=== PATIENT | male | born 1970 | race Caucasian/White ===

== ENCOUNTER 2018-04-08 12:00 | Inpatient (IN) | payer OTHER ==
[2018-04-08 13:57] VITALS: BMI 28.5
--- NOTE | 2018-04-08 14:46 | HP ---
CIWA Score Nausea/Vomitin-No Nausea/No Vomiting Muscle Tremors: 1-None Visible, but [place] Anxiety: 4-Mod. Anxious/Guarded Agitation: 4-Moderately Restless Paroxysmal Sweats: 1-Minimal Palms Moist Orientation: 0-Oriented Tacttile Disturbances: 3-Moderate Itch/Numb/Burn Auditory Disturbances: 0-None Visual Disturbances: 0-None Headache: 2-Mild CIWA-Ar Total Score: 15 - Admission Criteria OASAS Guidelines: Admission for Medically Managed Detox: Requires at least one of the followin. CIWA greater than 12 2. Seizures within the past 24 hours 3. Delirium tremens within the past 24 hours 4. Hallucinations within the past 24 hours 5. Acute intervention needed for co occurring medical disorder 6. Acute intervention needed for co occurring psychiatric disorder 7. Severe withdrawal that cannot be handled at a lower level of care (continued vomiting, continued diarrhea, abnormal vital signs) requiring intravenous medication and/or fluids 8. Admission ROS [facility] Chief Complaint: PATIENT PRESENTS WITH XANAX/KLONIPIN WITHDRAWAL SX Allergies/Adverse Reactions: Allergies Allergy/AdvReac Type Severity Reaction Status Date / Time No Known Allergies Allergy Verified 04/08/18 14:34 History of Present Illness: PATIENT IS FIRST ADMISSION TO [facility] FOR DETOX OF XANAX/BZO. PATIENT WAS IN DETOX AT [facility] 3 WEEKS AGO AND RELAPSE SOON AFTER DISCHARGE. PATIENT IS ALSO ON MMTP AT [facility] AND REPORTS LAST DOSE OF 100MG TODAY. RN DOSE VERIFICATION PENDING. PATIENT STARTED BUYING NON-PRESCRIBED XANAX 2017 AFTER RELEASE FROM ALF. PATIENT TAKES 14MG OF XANAX DAILY AND LAST DOSE WAS LAST NIGHT. PATIENT ALSO SNIFFS HEROIN, 10-15 BAGS DAILY IN ADDITION TO METHADONE. LAST TIME HE USED WAS LAST NIGHT. PATIENT DENIES HX OF SEIZURES. + BLACKOUTS, FALLS. AND OVERDOSE. LAST OVERDOSE 2007. DENIES IVDA. PMH ANXIETY/ DEPRESSION, RESTLESS LEG SYNDROME,ASTHMA AND TOBACCO USE. DENIES SI/HI AND SUICIDE ATTEMPTS. +MARIJUANA USE. Exam Limitations: No Limitations - Ebola screening Have you traveled outside of the country in the last 21 days: No Have you had contact with anyone from an Ebola affected area: No Have you been sick,other than usual withdrawal symptoms: No Do you have a fever: No - Review of Systems Constitutional: Chills, Changes in sleep, Unexplained wgt Loss EENT: reports: Recent change in vision (+[place]) Respiratory: reports: No Symptoms reported Cardiac: reports: No Symptoms Reported GI: reports: Poor Appetite, Poor Fluid Intake : reports: No Symptoms Reported, Other (DARK COLORED URINE) Musculoskeletal: reports: Back Pain, Muscle Pain Integumentary: reports: No Symptoms Reported Neuro: reports: Headache, Numbness, Tingling, Tremors Endocrine: reports: Unexplained Weight Loss Hematology: reports: No Symptoms Reported Psychiatric: reports: Orientated x3, Anxious, Depressed Patient History - Patient Medical History Hx Anemia: No Hx Asthma: Yes Hx Chronic Obstructive Pulmonary Disease (COPD): No Hx Cancer: No Hx Cardiac Disorders: No Hx Congestive Heart Failure: No Hx Hypertension: No Hx Hypercholesterolemia: No Hx Pacemaker: No HX Cerebrovascular Accident: No Hx Seizures: No Hx Dementia: No Hx Diabetes: No Hx Gastrointestinal Disorders: No Hx Liver Disease: No Hx Genitourinary Disorders: No Hx Sexually Transmitted Disorders: No Hx Renal Disease (ESRD): No Hx Thyroid Disease: No Hx Human Immunodeficiency Virus (HIV): No (2019, NEGATIVE) Hx Hepatitis C: No Hx Depression: Yes Hx Suicide Attempt: No Hx Bipolar Disorder: No Hx Schizophrenia: No - Patient Surgical History Past Surgical History: No Anesthesia Reaction: No - PPD History Previous Implant?: Yes Documented Results: Negative w/o proof PPD to be Administered?: Yes - Smoking Cessation Smoking history: Current every day smoker Have you smoked in the past 12 months: Yes Aproximately how many cigarettes per day: 20 Hx Chewing Tobacco Use: No Initiated information on smoking cessation: Yes 'Breaking Loose' booklet given: 04/08/18 - Substance & Tx. History Hx Alcohol Use: No Hx Substance Use: Yes Substance Use Type: Heroin, Prescribed, Tranquilizers Hx Substance Use Treatment: Yes - Substances Abused Alprazolam (Xanax) Route: Oral Frequency: Daily Amount used: 14MG Age of first use: 47 Date of Last Use: 04/07/18 Heroin Route: Inhalation Frequency: Daily Amount used: 10-15 BAGS Age of first use: 27 Date of Last Use: 04/07/18 Marijuana/Hashish Route: Smoking Frequency: Daily Amount used: 1 JOINT Age of first use: 12 Date of Last Use: 04/07/18 Family Disease History - Family Disease History Family Disease History: Other: Father () Admission Physical Exam [facility] - Vital Signs Vital Signs: Vital Signs - 24 hr 04/08/18 13:51 Temperature 97.8 F Pulse Rate 69 Respiratory 18 Rate Blood Pressure 122/64 - Physical General Appearance: Yes: Nourished, Appropriately Dressed, Tremorous, Anxious HEENTM: Yes: EOMI, Hearing grossly Normal, Normal ENT Inspection, Normocephalic , Normal Voice, BHARATI (PINPOINT PUPILS), Pharynx Normal Respiratory: Yes: Chest Non-Tender, Lungs Clear, Normal Breath Sounds, No Respiratory Distress, No Accessory Muscle Use Neck: Yes: No masses,lesions,Nodules, Supple, Trachea in good position Breast: Yes: Breast Exam Deferred Cardiology: Yes: Regular Rhythm, Regular Rate, S1, S2 Abdominal: Yes: Normal Bowel Sounds, Non Tender, Soft Genitourinary: Yes: Within Normal Limits Musculoskeletal: Yes: full range of Motion, Gait Steady, Back pain, Muscle Pain Extremities: Yes: Normal Range of Motion, Non-Tender, Tremors, Erythema (RIGHT LOWER CALF MILD REDNESS, NO CALF SWELLING), Other (+ BILATERAL VARICOSE VEINS) 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, Fully Oriented, Alert, Normal Response , Depressed Affect, Other (ANXIOUS) Integumentary: Yes: Normal Color, Dry, Warm Lymphatic: Yes: Within Normal Limits - Diagnostic (1) Methadone maintenance therapy patient Current Visit: Yes Status: Chronic (2) Anxiety Current Visit: Yes Status: Suspected (3) Depressed affect Current Visit: Yes Status: Suspected (4) Tobacco use Current Visit: Yes Status: Chronic (5) Sedative, hypnotic, or anxiolytic withdrawal Current Visit: Yes Status: Acute (6) Restless leg syndrome Current Visit: Yes Status: Chronic (7) Asthma Current Visit: Yes Status: Chronic Qualifiers: Asthma persistence: unspecified Asthma complication type: unspecified (8) Cellulitis of right leg Current Visit: Yes Status: Acute Cleared for Admission [facility] - Detox or Rehab [facility] Level of Care: Medically Managed Detox Regimen/Protocol: Valium [facility] Breath Alcohol Content Breath Alcohol Content: 0 Urine Drug Screen - Results Drug Screen Negative: No Urine Drug Screen Results: THC-Marijuana, OPI-Opiates, BZO-Benzodiazepines, MTD- Methadone, FEN-Fentanyl Inpatient Rehab Admission - Rehab Decision to Admit Inpatient rehab admission?: No
[2018-04-08] MEDS ORDERED: MAG HYDROX/AL HYDROX/SIMETH 30 ML UNIT-DOSE CUP PO PRN (14:58)
[2018-04-08] MEDS ORDERED: MAGNESIUM CITRATE 300 ML BOTTLE PO PRN (14:58)
[2018-04-08] MEDS ORDERED: P-EPHED 60MG/TRIPROLIDI 2.5MG TABLET PO PRN (14:58)
[2018-04-08] MEDS ORDERED: IBUPROFEN 400 MG TABLET (FP) PO PRN (14:58)
[2018-04-08] MEDS ORDERED: LOPERAMIDE HCL 2 MG CAPSULE PO PRN (14:58)
[2018-04-08] MEDS ORDERED: MENTHOL/PHENOL 1 EACH UD MM PRN (14:58)
[2018-04-08] MEDS ORDERED: guaiFENesin/D-METHORPHAN HB 10 ML UNIT-DOSE CUPS PO PRN (14:58)
[2018-04-08] MEDS ORDERED: MAGNESIUM HYDROX 2400MG/30ML ORAL SUSPENSION 30 ML CUP PO PRN (14:58)
[2018-04-08] MEDS ORDERED: NICOTINE POLACRILEX 2 MG GUM BC PRN (14:58)
[2018-04-08] MEDS ORDERED: hydrOXYzine PAMOATE 50 MG CAPSULE (FP) PO PRN (14:58)
[2018-04-08] MEDS ORDERED: ACETAMINOPHEN 325 MG TABLET (FP) PO PRN (14:58)
[2018-04-08] MEDS ORDERED: diazePAM 5 MG TABLET PO ONE (18:00)
[2018-04-08] MEDS: CEPHALEXIN MONOHYDRATE 500 MG CAPSULE (UD) PO SCH ×2 (18:28→23:38)
[2018-04-08] MEDS ORDERED: MELATONIN 5 MG TABLETS PO PRN (22:00)
[2018-04-08] MEDS: diazePAM 5 MG TABLET PO SCH (22:29)
[2018-04-08] MEDS: GABAPENTIN 100 MG CAPSULE (FP) PO SCH (22:29)
[2018-04-08] MEDS: THIAMINE HCL 100 MG TABLET (FP) PO SCH (22:29)
[2018-04-09] MEDS: GABAPENTIN 100 MG CAPSULE (FP) PO SCH ×3 (05:57→22:13)
[2018-04-09] MEDS: CEPHALEXIN MONOHYDRATE 500 MG CAPSULE (UD) PO SCH ×4 (05:57→23:11)
[2018-04-09] MEDS: diazePAM 5 MG TABLET PO SCH ×3 (05:57→22:13)
[2018-04-09] MEDS ORDERED: METHADONE HCL 10 MG TABLET PO ONE (08:54)
[2018-04-09] MEDS: diazePAM 5 MG TABLET PO PRN ×2 (09:05→17:29)
--- NOTE | 2018-04-09 09:08 | CONSULT ---
[facility] Psychiatric Consult - Data Date of interview: 04/09/18 Admission source: [facility] Identifying data: Patient is a 47 year old single male, without children, unemployed (denies receiving financial assistance), and currently resides with sister.This is patient's first admission to [facility]. Patient admitted to for benzodiazepine dependence. Substance Abuse History: - Smoking Cessation. Smoking history: Current every day smoker. Have you smoked in the past 12 months: Yes. Aproximately how many cigarettes per day: 20. Hx Chewing Tobacco Use: No. Initiated information on smoking cessation: Yes. 'Breaking Loose' booklet given: 04/08/18. - Substance & Tx. History. Hx Alcohol Use: No. Hx Substance Use: Yes. Substance Use Type : Heroin, Prescribed, Tranquilizers. Hx Substance Use Treatment: Yes. - Substances Abused. Alprazolam (Xanax). Route: Oral. Frequency: Daily. Amount used: 14MG. Age of first use: 47. Date of Last Use: 04/07/18. Heroin. Route: Inhalation. Frequency: Daily. Amount used: 10-15 BAGS. Age of first use: 27. Date of Last Use: 04/07/18. Marijuana/Hashish. Route: Smoking. Frequency: Daily. Amount used: 1 JOINT. Age of first use: 12. Date of Last Use: 04/07/18 Medical History: Asthma Psychiatric History: Patient denies h/o psychiatric hospitalization, outpatient care, and suicide attempt. Mr. Urias is on methadone maintenance of 100mg daily at [facility]. At present, patient reports difficulty sleeping. Physical/Sexual Abuse/Trauma History: denies. Mental Status Exam - Mental Status Exam Alert and Oriented to: Time, Place, Person Cognitive Function: Good Patient Appearance: Well Groomed Mood: Anxious Affect: Mood Congruent Patient Behavior: Cooperative Speech Pattern: Clear Voice Loudness: Normal Thought Process: Intact, Goal Oriented Thought Disorder: Not Present Hallucinations: Denies Suicidal Ideation: Denies Homicidal Ideation: Denies Insight/Judgement: Poor Sleep: Poorly Appetite: Fair Muscle strength/Tone: Normal Gait/Station: Normal Psychiatric Findings - Problem List ([place] 1, 2,3) (1) Substance induced mood disorder Status: Acute (2) Sedative, hypnotic, or anxiolytic withdrawal Status: Acute (3) Methadone maintenance therapy patient Status: Chronic (4) Substance-induced sleep disorder Status: Acute - Initial Treatment Plan Initial Treatment Plan: Psychoeducation provided. Detoxification in progress. Melatonin 5mg ordered by [facility]. Patient has yet to accept melatonin. Seroquel and trazodone offered but patient reports h/o restless legs after accepting either medication.
[2018-04-09] MEDS ORDERED: METHADONE 80 MG, METHADONE 20 MG PO ONE (09:15)
[2018-04-09] MEDS ORDERED: METHADONE HCL 10 MG TABLET ONE (10:00)
[2018-04-09] MEDS ORDERED: METHADONE HCL 40 MG DISPERSABLE TABLET ONE (10:00)
[2018-04-09] MEDS: PRENATAL VITAMINS W/ FOLIC ACID TABLET (FP) PO SCH (10:34)
--- NOTE | 2018-04-09 11:03 | PN ---
[facility] CIWA - CIWA Score Nausea/Vomitin Muscle Tremors: 2 Anxiety: 2 Agitation: 2 Paroxysmal Sweats: 1-Minimal Palms Moist Orientation: 0-Oriented Tacttile Disturbances: 1-Very Mild Itch/Numbness Auditory Disturbances: 1-Very Mild Visual Disturbances: 0-None Headache: 2-Mild CIWA-Ar Total Score: 13 [facility] Progress Note (SOAP) Subjective: alert,irritable,anxious,,interrupted sleep,tremor,pain in the body,interrupted sleep Objective: 04/09/18 11:02 Vital Signs Temperature 97.7 F 04/09/18 09:21 Pulse Rate 73 04/09/18 09:21 Respiratory Rate 18 04/09/18 09:21 Blood Pressure 131/84 04/09/18 09:21 O2 Sat by Pulse Oximetry (%) Assessment: 04/09/18 11:02withdrawal symptom labs pending Plan: continue detox
[2018-04-09 11:24] LABS: HEMATOCRIT 35.8 % (35.4-49); HEMOGLOBIN 11.9 GM/dL (11.7-16.9); MCHC 33.4 g/dl (32.0-35.9); MEAN CELL VOLUME 87.1 fl (80-96); MEAN PLT VOLUME 9.2 fl (7.5-11.1); PLATELET COUNT 195 K/MM3 (134-434); RBC 4.11 M/mm3 (4.00-5.60); RDW 15.5 % (11.9-15.9); WHITE BLOOD COUNT 5.1 K/mm3 (4.0-10.0)
[2018-04-09 12:39] LABS: ALBUMIN 3.5 g/dl (3.4-5.0); ALK PHOS 78 U/L (45-117); ANION GAP 7 MMOL/L (8-16); BILIRUBIN,TOTAL 0.3 mg/dL (0.2-1); BLOOD UREA NITROGEN 15 mg/dL (7-18); CALCIUM 8.2 mg/dL (8.5-10.1); CHLORIDE 107 mmol/L (98-107); CO2 30 mmol/L (21-32); CREATININE 0.9 mg/dL (0.55-1.3); GLUCOSE,RANDOM 115 mg/dL (74-106); POTASSIUM 4.2 mmol/L (3.5-5.1); SGOT/AST 30 U/L (15-37); SGPT/ALT 27 U/L (13-61); SODIUM 144 mmol/L (136-145); TOT PROT 7.1 g/dl (6.4-8.2)
--- NOTE | 2018-04-09 12:44 | EKG ---
Test Reason : Blood Pressure : / mmHG Vent. Rate : 060 BPM Atrial Rate : 060 BPM P-R Int : 144 ms QRS Dur : 082 ms QT Int : 466 ms P-R-T Axes : 067 052 045 degrees QTc Int : 466 ms NORMAL SINUS RHYTHM NORMAL ECG NO PREVIOUS ECGS AVAILABLE Confirmed by JULIA BOYER, KERWIN ([id number]) on 04/09/2018 12:43:25 PM Referred By: Confirmed By:KERWIN DUMONT MD
[2018-04-09 19:10] LABS: URINE APPEARANCE SLCLOUDY; URINE BILIRUBIN NEGATIVE (<2.0 mg/dL); URINE COLOR AMBER; URINE GLUCOSE (UA) NEGATIVE (NEGATIVE); URINE KETONE NEGATIVE (NEGATIVE); URINE LEUK ESTERASE NEGATIVE (NEGATIVE); URINE NITRITE NEGATIVE (NEGATIVE); URINE PROTEIN NEGATIVE (NEGATIVE)
[2018-04-09] MEDS: THIAMINE HCL 100 MG TABLET (FP) PO SCH (22:13)
[2018-04-10] MEDS ORDERED: METHADONE HCL 40 MG DISPERSABLE TABLET ONE (05:34)
[2018-04-10] MEDS ORDERED: METHADONE HCL 10 MG TABLET ONE (05:35)
[2018-04-10] MEDS ORDERED: METHADONE HCL 40 MG DISPERSABLE TABLET PO SCH (06:00)
[2018-04-10] MEDS: CEPHALEXIN MONOHYDRATE 500 MG CAPSULE (UD) PO SCH ×3 (06:06→18:20)
[2018-04-10] MEDS: METHADONE 80 MG, METHADONE 20 MG PO SCH (06:06)
[2018-04-10] MEDS: GABAPENTIN 100 MG CAPSULE (FP) PO SCH ×3 (06:06→22:11)
[2018-04-10] MEDS: diazePAM 5 MG TABLET PO PRN ×2 (06:09→18:20)
[2018-04-10] MEDS: diazePAM 5 MG TABLET PO SCH ×2 (10:15→22:11)
[2018-04-10] MEDS: PRENATAL VITAMINS W/ FOLIC ACID TABLET (FP) PO SCH (10:15)
--- NOTE | 2018-04-10 13:32 | PN ---
S CIWA - CIWA Score Nausea/Vomitin-No Nausea/No Vomiting Muscle Tremors: None Anxiety: 3 Agitation: 2 Paroxysmal Sweats: 1-Minimal Palms Moist Orientation: 0-Oriented Tacttile Disturbances: 0-None Auditory Disturbances: 0-None Visual Disturbances: 0-None Headache: 1-Very Mild CIWA-Ar Total Score: 7 S Progress Note (SOAP) Subjective: pt states he was taking a lot of benzos each day> wants to go to intermediate rehab O: Vital Signs - 24 hr 04/09/18 04/09/18 04/10/18 18:54 22:36 00:30 Temperature 98.2 F 98.6 F Pulse Rate 64 59 L Respiratory 18 20 18 Rate Blood Pressure 132/74 115/71 04/10/18 04/10/18 04/10/18 03:30 08:45 09:43 Temperature 97.5 F L 98 F Pulse Rate 55 L 61 Respiratory 18 18 18 Rate Blood Pressure 125/55 L 124/67 Laboratory Tests 04/09/18 04/09/18 04/09/18 00:00 06:00 06:00 WBC 5.1 RBC 4.11 Hgb 11.9 Hct 35.8 MCV 87.1 MCH 29.0 MCHC 33.4 RDW 15.5 Plt Count 195 MPV 9.2 Sodium 144 Potassium 4.2 Chloride 107 Carbon Dioxide 30 Anion Gap 7 L BUN 15 Creatinine 0.9 Creat Clearance w eGFR > 60 Random Glucose 115 H Calcium 8.2 L Total Bilirubin 0.3 AST 30 ALT 27 Alkaline Phosphatase 78 Total Protein 7.1 Albumin 3.5 Urine Color Varsha Urine Appearance Slcloudy Urine pH 5.0 Ur Specific [place] 1.029 Urine Protein Negative Urine Glucose (UA) Negative Urine Ketones Negative Urine Blood Negative Urine Nitrite Negative Urine Bilirubin Negative Urine Urobilinogen 2.0 Ur Leukocyte Esterase Negative RPR Titer 04/09/18 06:00 WBC RBC Hgb Hct MCV MCH MCHC RDW Plt Count MPV Sodium Potassium Chloride Carbon Dioxide Anion Gap BUN Creatinine Creat Clearance w eGFR Random Glucose Calcium Total Bilirubin AST ALT Alkaline Phosphatase Total Protein Albumin Urine Color Urine Appearance Urine pH Ur Specific [place] Urine Protein Urine Glucose (UA) Urine Ketones Urine Blood Urine Nitrite Urine Bilirubin Urine Urobilinogen Ur Leukocyte Esterase RPR Titer Nonreactive low calcium a/p: Benzo detox with valium, 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
[2018-04-10] MEDS: CALCIUM CARBONATE 650 MG TABLET PO SCH ×2 (14:54→22:10)
[2018-04-10] MEDS: THIAMINE HCL 100 MG TABLET (FP) PO SCH (22:11)
[2018-04-11] MEDS ORDERED: METHADONE HCL 40 MG DISPERSABLE TABLET ONE (04:50)
[2018-04-11] MEDS ORDERED: METHADONE HCL 10 MG TABLET ONE (04:51)
[2018-04-11] MEDS: CEPHALEXIN MONOHYDRATE 500 MG CAPSULE (UD) PO SCH ×5 (05:59→23:03)
[2018-04-11] MEDS: METHADONE 80 MG, METHADONE 20 MG PO SCH (05:59)
[2018-04-11] MEDS: GABAPENTIN 100 MG CAPSULE (FP) PO SCH ×3 (05:59→22:24)
[2018-04-11] MEDS: diazePAM 5 MG TABLET PO PRN ×2 (06:03→11:40)
[2018-04-11] MEDS: PRENATAL VITAMINS W/ FOLIC ACID TABLET (FP) PO SCH (10:12)
[2018-04-11] MEDS: diazePAM 5 MG TABLET PO SCH ×2 (10:12→22:24)
[2018-04-11] MEDS: CALCIUM CARBONATE 650 MG TABLET PO SCH ×2 (11:42→22:24)
--- NOTE | 2018-04-11 12:52 | PN ---
[facility] Progress Note Note: PATIENT CONTINUES WITH DETOX FROM BZO DEPENDENCE. PATIENT C/O ANXIETY, RESTLESSNESS AND INTERRUPTED SLEEP. Laboratory Tests 04/09/18 04/09/18 04/09/18 00:00 06:00 06:00 WBC 5.1 RBC 4.11 Hgb 11.9 Hct 35.8 MCV 87.1 MCH 29.0 MCHC 33.4 RDW 15.5 Plt Count 195 MPV 9.2 Sodium 144 Potassium 4.2 Chloride 107 Carbon Dioxide 30 Anion Gap 7 L BUN 15 Creatinine 0.9 Creat Clearance w eGFR > 60 Random Glucose 115 H Calcium 8.2 L Total Bilirubin 0.3 AST 30 ALT 27 Alkaline Phosphatase 78 Total Protein 7.1 Albumin 3.5 Urine Color Varsha Urine Appearance Slcloudy Urine pH 5.0 Ur Specific [place] 1.029 Urine Protein Negative Urine Glucose (UA) Negative Urine Ketones Negative Urine Blood Negative Urine Nitrite Negative Urine Bilirubin Negative Urine Urobilinogen 2.0 Ur Leukocyte Esterase Negative RPR Titer 04/09/18 06:00 WBC RBC Hgb Hct MCV MCH MCHC RDW Plt Count MPV Sodium Potassium Chloride Carbon Dioxide Anion Gap BUN Creatinine Creat Clearance w eGFR Random Glucose Calcium Total Bilirubin AST ALT Alkaline Phosphatase Total Protein Albumin Urine Color Urine Appearance Urine pH Ur Specific [place] Urine Protein Urine Glucose (UA) Urine Ketones Urine Blood Urine Nitrite Urine Bilirubin Urine Urobilinogen Ur Leukocyte Esterase RPR Titer Nonreactive Vital Signs Temperature 98.9 F 04/11/18 09:34 Pulse Rate 65 04/11/18 09:34 Respiratory Rate 19 04/11/18 09:34 Blood Pressure 125/73 04/11/18 09:34 O2 Sat by Pulse Oximetry (%) PE: ALERT AND ORIENTED X 3 SKIN WARM AND DRY EXT FULL ROM, NO VISIBLE TREMORS +ANXIETY, PACING ON UNIT A/P: WITHDRAWAL SX CONTINUE DETOX ENCOURAGE ORAL FLUIDS PATIENT COMPLETES DETOX TOMORROW. REFERRED TO COUNSELOR HE WOULD LIKE TO ATTEND REHAB AT [facility]. COUNSELOR CALLED FACILITY, LEFT MESSAGE. TO FOLLOW UP IN AM.
[2018-04-11] MEDS: THIAMINE HCL 100 MG TABLET (FP) PO SCH (22:24)
[2018-04-12] MEDS ORDERED: METHADONE HCL 40 MG DISPERSABLE TABLET ONE (05:56)
[2018-04-12] MEDS ORDERED: METHADONE HCL 10 MG TABLET ONE (05:56)
[2018-04-12] MEDS: CEPHALEXIN MONOHYDRATE 500 MG CAPSULE (UD) PO SCH (05:57)
[2018-04-12] MEDS: METHADONE 80 MG, METHADONE 20 MG PO SCH (05:57)
[2018-04-12] MEDS: GABAPENTIN 100 MG CAPSULE (FP) PO SCH (05:57)
[2018-04-12] MEDS: PRENATAL VITAMINS W/ FOLIC ACID TABLET (FP) PO SCH (09:37)
[2018-04-12] MEDS: CALCIUM CARBONATE 650 MG TABLET PO SCH (09:37)
[2018-04-12 09:53] VITALS: BP 131/79; PULSE 77; TEMP 98.4
[2018-04-12] MEDS ORDERED: diazePAM 5 MG TABLET PO SCH (10:00)
--- NOTE | 2018-04-12 14:26 | DS ---
[facility] Detox Discharge Summary Admission Date: 04/08/18 Discharge Date: 04/12/18 - History Present History: Opioid Dependence, Sedative Dependence, MMTP Additional Comments: PATIENT ELECTS TO GO HOME AND RETURN TO [facility] ([place], [place]) FOR AFTERCARE. PATIENT ALSO ADVISED TO CONSIDER LOCAL 12-STEP / NA OUTPATIENT SUPPORT GROUP FOR AFTERCARE. PRESCRIPTION FOR FOLLOW-UP ANTIBIOTIC ( KEFLEX) STARTED FOR CELLULITIS OF RIGHT LEG WHILE ADMITTED FOR DETOX SENT TO PATIENT'S PHARMACY ([facility] [place], [place]). PATIENT ADVISED TO COMPLETE FULL COURSE OF ANTIBIOTIC AND TO FOLLOW-UP WITH UNDERGROUND PRODUCTION FOREPERSON SOON POSSIBLE AFTER DISCHARGE FROM DETOX FOR FURTHER MEDICAL EVALUATION OF CELLULITIS OF LEG. PATIENT VERBALIZED UNDERSTANDING OF ALL RECOMMENDATIONS. PATIENT WAS DISCHARGED FROM DETOX UNIT IN STABLE MEDICAL CONDITION . Pertinent Past History: Asthma, Cellulitis Of Right Leg, Nicotine Dependence, History of Depression, Anxiety, M.M.T.P., Restless Leg Syndrome. - Physical Exam Results Vital Signs: Vital Signs Temperature 98.4 F 04/12/18 09:53 Pulse Rate 77 04/12/18 09:53 Respiratory Rate 18 04/12/18 09:53 Blood Pressure 131/79 04/12/18 09:53 O2 Sat by Pulse Oximetry (%) Pertinent Admission Physical Exam Findings: WITHDRAWAL SYMPTOMS. Laboratory Tests 04/09/18 04/09/18 04/09/18 00:00 06:00 06:00 WBC 5.1 RBC 4.11 Hgb 11.9 Hct 35.8 MCV 87.1 MCH 29.0 MCHC 33.4 RDW 15.5 Plt Count 195 MPV 9.2 Sodium 144 Potassium 4.2 Chloride 107 Carbon Dioxide 30 Anion Gap 7 L BUN 15 Creatinine 0.9 Creat Clearance w eGFR > 60 Random Glucose 115 H Calcium 8.2 L Total Bilirubin 0.3 AST 30 ALT 27 Alkaline Phosphatase 78 Total Protein 7.1 Albumin 3.5 Urine Color Varsha Urine Appearance Slcloudy Urine pH 5.0 Ur Specific [place] 1.029 Urine Protein Negative Urine Glucose (UA) Negative Urine Ketones Negative Urine Blood Negative Urine Nitrite Negative Urine Bilirubin Negative Urine Urobilinogen 2.0 Ur Leukocyte Esterase Negative RPR Titer 04/09/18 06:00 WBC RBC Hgb Hct MCV MCH MCHC RDW Plt Count MPV Sodium Potassium Chloride Carbon Dioxide Anion Gap BUN Creatinine Creat Clearance w eGFR Random Glucose Calcium Total Bilirubin AST ALT Alkaline Phosphatase Total Protein Albumin Urine Color Urine Appearance Urine pH Ur Specific [place] Urine Protein Urine Glucose (UA) Urine Ketones Urine Blood Urine Nitrite Urine Bilirubin Urine Urobilinogen Ur Leukocyte Esterase RPR Titer Nonreactive LABS NOTED. - Treatment Hospital Course: Detox Protocol Followed, Detoxed Safely, Responded well, Discharged Condition Good Patient has Accepted a Rehab Referral to: PT RETURNING TO [facility], ADVISED TO CONSIDER LOCAL 12-STEP/NA GROUPS - Medication Discharge Medications: Ambulatory Orders Methadone [Dolophine -] 100 mg PO DAILY 04/08/18 Cephalexin [Keflex] 500 mg PO Q6H 4 Days #16 capsule 04/12/18 - Diagnosis (1) Cellulitis of right leg Status: Acute (2) Sedative, hypnotic, or anxiolytic withdrawal Status: Acute (3) Substance induced mood disorder Status: Acute (4) Substance-induced sleep disorder Status: Acute (5) Asthma Status: Chronic Qualifiers: Asthma severity: unspecified severity Asthma persistence: unspecified Asthma complication type: unspecified Qualified Code(s): J45.909 - Unspecified asthma, uncomplicated (6) Methadone maintenance therapy patient Status: Chronic (7) Restless leg syndrome Status: Chronic (8) Tobacco use Status: Chronic (9) Anxiety Status: Suspected (10) Depressed affect Status: Suspected - AMA Did Patient Leave Against Medical Advice: No
== END 2018-04-12 09:56 | disposition home or self-care (01) | DRG 773 ==
LOC: YASAS 12:00 → Y6N 17:12
PROVIDERS: ADMIT Surgery; ATTEND Surgery
PROC: HZ2ZZZZ Detoxification Services for Substance Abuse Treatment (ICD-10-PCS; principal; 2018-04-08)
DX: F13.230 Sedative, hypnotic or anxiolytic dependence with withdrawal, uncomplicated (principal); F11.20 Opioid dependence, uncomplicated; F14.20 Cocaine dependence, uncomplicated; F17.210 Nicotine dependence, cigarettes, uncomplicated; F19.24 Other psychoactive substance dependence with psychoactive substance-induced mood disorder; F19.282 Other psychoactive substance dependence with psychoactive substance-induced sleep disorder; F41.9 Anxiety disorder, unspecified; F32.9 Major depressive disorder, single episode, unspecified; J45.909 Unspecified asthma, uncomplicated; G25.81 Restless legs syndrome; L03.115 Cellulitis of right lower limb
CPT/HCPCS: 36415; 80053; 81003; 85027; 86593; 93005; 93010